=== PATIENT | male | born 1945 | race African-American/Black ===

== ENCOUNTER 2016-09-06 07:23 | Emergency (ER) | payer BC, MEDICARE ==
[~2016-09-06] VITALS: Ht 175.3 cm; Wt 64.0 kg
[~2016-09-06 07:23] MED LIST: ASPI-630 PO; FLUT1DIS3 IH; LISI-338 PO; MULT-658 PO; OMEP20CA9 PO; PRED-220 PO; VENTOLIN HFA18 GM INH
[2016-09-06 07:25] VITALS: BP 131/96
[2016-09-06] MEDS ORDERED: predniSONE 10 MG TABLET PO ONE (07:45)
[2016-09-06 08:00] LABS: CALCIUM 9.5 mg/dL (8.5-10.1); CREATININE 1.9 mg/dL (0.7-1.3); GFR 42.5; POTASSIUM 3.9 mmol/L (3.5-5.1)
[2016-09-06 08:03] LABS: URIC ACID 8.4 mg/dL (3.5-7.2)
--- NOTE | 2016-09-06 08:05 | ED.ADGEN ---
Past Medical History Past Medical History: Asthma, Hypertension Past Surgical History: Appendectomy Additional Past Surgical Histo: DECOMPRESSION HIP SURGERY Alcohol Use: Heavy Drug Use: None Adult General Chief Complaint Chief Complaint: TOE PROBLEM HPI HPI Patient is a 71 year old F[place]ian male presents with left great toe pain since yesterday. No injury. Patient reports left knee pain one week ago. Denies history of gout. No other acute symptoms or complaints. Review of Systems Review of Systems Review symptoms as prescribed. Current Medications Current Medications Current Medications Medications (Trade) Dose Ordered Sig/Rachel Start Time Stop Time Status Last Admin Dose Admin Prednisone (Prednisone) 50 mg 1X ONCE 09/06/16 07:45 09/06/16 07:46 DC 09/06/16 07:48 50 MG Allergies Allergies Allergies Coded Allergies Type Severity Reaction Last Updated Verified No Known Drug Allergies 04/05/13 No Physical Exam Physical Exam Constitutional: Well developed, well nourished, no acute distress, non-toxic appearance. Extremities: Great toe, mild erythema swelling with tenderness disproportionate to to mom of swelling and redness. No gross deformity. Current Patient Data Vital Signs Vital Signs Date Time Temp Pulse Resp B/P (MAP) Pulse Ox O2 Delivery O2 Flow Rate FiO2 09/06/16 07:25 98.7 103 15 99 Room Air 98.7 Lab Values Laboratory Tests Test 09/06/16 07:49 Sodium Level 141 mmol/L (136-145) Potassium Level 3.9 mmol/L (3.5-5.1) Chloride Level 103 mmol/L (98-107) Carbon Dioxide Level 31 mmol/L (21-32) Anion Gap 7 (6-14) Blood Urea Nitrogen 29 mg/dL (8-26) H Creatinine 1.9 mg/dL (0.7-1.3) H Estimated GFR (Cockcroft-Gault) 42.5 Glucose Level 125 mg/dL (70-99) H Uric Acid Pending Calcium Level 9.5 mg/dL (8.5-10.1) Laboratory Tests 09/06/16 07:49 EKG EKG [] Radiology/Procedures Radiology/Procedures [] Course & Med Decision Making Course & Med Decision Making Pertinent Labs and Imaging studies reviewed. (See chart for details) [Exam consistent with gouty arthritis of great toe] Dragon Disclaimer Dragon Disclaimer This electronic medical record was generated, in whole or in part, using a voice recognition dictation system. ISABELL ROBB DO Sep 06, 2016 08:05
== END 2016-09-06 08:15 | disposition home or self-care (01) ==
LOC: ER 07:23
DX: M10.9 Gout, unspecified (principal); I10 Essential (primary) hypertension; J45.909 Unspecified asthma, uncomplicated; Z90.49 Acquired absence of other specified parts of digestive tract
CPT/HCPCS: 36415; 80048; 84550; 99284; J7512

== ENCOUNTER 2017-04-01 13:39 | Emergency (ER) | payer BC ==
[2017-04-01] MEDS ORDERED: ALBUTEROL SULFATE 2.5 MG/3 ML NEBU. (14:28)
[2017-04-01] MEDS: IPRATRPIUM/ALBUTEROL 0.5/2.5MG 3 ML NEBU. NEB ×2 (14:29→14:33)
[2017-04-01] MEDS ORDERED: 0.9 % SODIUM CHLORIDE 10 ML DISP.SYRIN. IV (14:30)
[2017-04-01] MEDS: ALBUTEROL SULFATE 2.5 MG/3 ML NEBU. NEB (14:33)
[2017-04-01] MEDS: IV NORMAL SALINE 1000ML BAG 1,000 ML IV (15:20)
[2017-04-01] MEDS: methylPREDNISolone SOD SUCC PF 125 MG/2 ML VIAL. IV (15:20)
[2017-04-01] MEDS: ASPIRIN CHEWABLE 81 MG TABLET. PO (15:21)
[2017-04-01 15:30] LABS: ADD MAN DIFF? NO
[2017-04-01 15:33] LABS: BASO # 0.1 x10^3/uL (0.0-0.2); BASO % 1 % (0-3); EOS # 0.3 x10^3/uL (0.0-0.7); EOS % 3 % (0-3); HEMATOCRIT 45.2 % (39.0-53.0); HEMOGLOBIN 15.2 g/dL (13.0-17.5); LYMPH # 1.9 x10^3/uL (1.0-4.8); LYMPH % 22 % (24-48); MEAN CORPUSCULAR HEMOGLOBIN 36 pg (25-35); MEAN CORPUSCULAR HGB CONC 34 g/dL (31-37); MEAN CORPUSCULAR VOLUME 107 fL (79-100); MONO % 12 % (0-9); NEUT # 5.3 x10^3uL (1.8-7.7); NEUT % 62 % (31-73); PLATELET COUNT 225 x10^3/uL (140-400); RED BLOOD COUNT 4.24 x10^6/uL (4.30-5.70); RED CELL DISTRIBUTION WIDTH 13.6 % (11.5-14.5); WHITE BLOOD COUNT 8.4 x10^3/uL (4.0-11.0)
[2017-04-01 15:49] LABS: ANION GAP 15 (6-14); BLOOD UREA NITROGEN 37 mg/dL (8-26); CALCIUM 9.1 mg/dL (8.5-10.1); CARBON DIOXIDE 24 mmol/L (21-32); CHLORIDE 105 mmol/L (98-107); CREATININE 1.9 mg/dL (0.7-1.3); GFR 42.4; GLUCOSE 99 mg/dL (70-99); POTASSIUM 4.1 mmol/L (3.5-5.1); SODIUM 144 mmol/L (136-145)
[2017-04-01 15:55] LABS: ALBUMIN 3.7 g/dL (3.4-5.0); ALK PHOS 89 U/L (46-116); ALT (SGPT) 24 U/L (16-63); AST (SGOT) 29 U/L (15-37); DIRECT BILIRUBIN 0.1 mg/dL (0.0-0.2); TOTAL BILIRUBIN 0.1 mg/dL (0.2-1.0); TOTAL PROTEIN 6.9 g/dL (6.4-8.2)
[2017-04-01 16:02] LABS: TROPONINI < 0.017 ng/mL (0.000-0.055)
[2017-04-01 16:03] LABS: NT-PRO BNP 128 pg/mL (0-124)
[2017-04-01 16:03] LABS: CREATINE KINASE 33 U/L (39-308)
[2017-04-01 16:05] LABS: INFLUENZA A PATIENT NEGATIVE (NEGATIVE); INFLUENZA B PATIENT NEGATIVE (NEGATIVE); OBC FLU VALID
[2017-04-01 16:11] LABS: CKMB INDEX 1.5 % (0-4); CKMB MASS < 0.5 ng/mL (0.0-3.6)
== END 2017-04-01 17:13 | disposition home or self-care (01) ==
LOC: ER 13:39
DX: J44.1 Chronic obstructive pulmonary disease with (acute) exacerbation (principal); I13.10 Hypertensive heart and chronic kidney disease without heart failure, with stage 1 through stage 4 chronic kidney disease, or unspecified chronic kidney disease; N18.9 Chronic kidney disease, unspecified; F17.210 Nicotine dependence, cigarettes, uncomplicated; Z90.49 Acquired absence of other specified parts of digestive tract
CPT/HCPCS: 36415; 71046; 80048; 80076; 82553; 83880; 84484; 85025; 87804; 87804-59; 93005; 94640; 96361; 96374; 99285-25; J2930; J7030; J7613; J7620

== ENCOUNTER 2019-10-24 21:32 | Inpatient (IN) | payer BC ==
[~2019-10-24] VITALS: Ht 175.3 cm; Wt 72.0 kg
[~2019-10-24 21:32] MED LIST changes: +ALBU2.5V8 INH; +AMOX1TAB11 PO; +CIPR500T94 PO; +OMEP20CA16 PO; -OMEP20CA9 PO; +PRED50TA PO; +TIOT18CA IH; +TRIA1TAB3 PO; +combivent; +symbicort
--- NOTE | 2019-10-24 22:17 | PHYS DOC ---
Past Medical History Past Medical History: Asthma, COPD, Hypertension, Renal Disease Past Surgical History: Appendectomy Additional Past Surgical Histo: Hip surgery Smoking Status: Light Tobacco Smoker Alcohol Use: Occasionally Drug Use: None General Adult EDM: Chief Complaint: SHORTNESS OF BREATH HPI: HPI: Patient is a 74 year old male who presents with chief complaint of shortness of breath. Patient states that today he felt like his shortness of breath changed in that he became worse today. He reports no change in cough and reports a thin clear sputum production occasionally. He also denied any fever or chills reports that his exercise tolerance is for him. Patient also denied any chest pain, neck pain or back pain. In addition he denied melena, hematochezia, hematemesis, nausea, vomiting, diarrhea, anosmia, sore throat, or any real change in his cough. Patient denies any recent contacts that are exposed to COVID or any familial illnesses. Review of Systems: Review of Systems: Constitutional: Denies fever or chills. [] Eyes: Denies change in visual acuity. [] HENT: Denies nasal congestion or sore throat. [] Respiratory: see HPI [] Cardiovascular: Denies chest pain or edema. [] GI: Denies abdominal pain, nausea, vomiting, bloody stools or diarrhea. [] : Denies dysuria. [] Musculoskeletal: Denies back pain or joint pain. [] Integument: Denies rash. [] Neurologic: Denies headache, focal weakness or sensory changes. [] Endocrine: Denies polyuria or polydipsia. [] Lymphatic: Denies swollen glands. [] Psychiatric: Denies depression or anxiety. [] Heart Score: Risk Factors: Risk Factors: DM, Current or recent (<one month) smoker, HTN, HLP, family history of CAD, obesity. Risk Scores: Score 0 - 3: 2.5% MACE over next 6 weeks - Discharge Home Score 4 - 6: 20.3% MACE over next 6 weeks - Admit for Clinical Observation Score 7 - 10: 72.7% MACE over next 6 weeks - Early Invasive Strategies Allergies: Allergies: Allergies Coded Allergies Type Severity Reaction Last Updated Verified No Known Drug Allergies 04/05/13 No Physical Exam: PE: Constitutional: Well developed, well nourished, no acute distress, non-toxic appearance. [] HENT: Normocephalic, atraumatic, bilateral external ears normal, oropharynx moist, no oral exudates, nose normal. [] Eyes: PERRLA, EOMI, conjunctiva normal, no discharge. [] Neck: Normal range of motion, no tenderness, supple, no stridor. [] Cardiovascular:Heart rate regular rhythm, no murmur [] Lungs & Thorax: Respiratory rate of 20 with some mild accessory muscle use. Diffuse rhonchi bilaterally with basilar crackles, no chest wall deformity. Abdomen: Bowel sounds normal, soft, no tenderness, no masses, no pulsatile masses. [] Skin: Warm, dry, no erythema, no rash. [] Back: No tenderness, no CVA tenderness. [] Extremities: No tenderness, no cyanosis, mild clubbing, ROM intact, trace edema bilaterally. [] Neurologic: Alert and oriented X 3, normal motor function, normal sensory function, no focal deficits noted. [] Psychologic: Affect normal, judgement normal, mood normal. [] EKG: EKG: Heart rate 69 bpm, normal sinus rhythm, normal intervals, normal axis, normal ECG [] Radiology/Procedures: Radiology/Procedures: No acute infiltrative process noted on chest x-ray two-view [] Course & Med Decision Making: Course & Med Decision Making Pertinent Labs and Imaging studies reviewed. (See chart for details) [id number]-the patient was seen and reevaluated. The patient has improved with treatments rendered here in the emergency department. Patient does have a bord ryann elevated troponin and I am awaiting a repeat prior to his discharge. If it is negative he will be safe for discharge. Patient improved with treatment rendered here in the emergency department. No evidence for next medical or surgical problem is identified. Patient does not need to be admitted at this time. I discussed reasons to return, treatment plan and need for follow-up. [] Dragon Disclaimer: Dragon Disclaimer: This electronic medical record was generated, in whole or in part, using a voice recognition dictation system. Date and Time of Assessment Date: Oct 24, 2019 Time: 22:11 Vital Signs Temperature Source: Oral Respirations Respiratory Effort: Accessory muscles Respiratory Pattern: Tachypnea Cardiovascular Pulse Rhythm: Regular Heart: Nml rate, reg. rhythm, Nml S1, S2, no murmurs Lung Sounds Breath Sounds: Rhonchi Capillary Refil Capillary Refill: Rt Hand < 3 seconds Peripheral Pulse Pulse Location: Radial Pulse Strength: Normal (2+) Pulse Assessment Method: Palpation Integumentary Skin: Warm, Dry, No Rashes Skin Moisture: Dry Skin Turgor: Normal Skin Color: warm, dry Fingernail Color: WNL Departure Departure Impression: Primary Impression: COPD with acute exacerbation Disposition: HOME, SELF-CARE Condition: IMPROVED Referrals: DARREN CHEN MD (PCP) Patient Instructions: Chronic Obstructive Pulmonary Disease Exacerbation Scripts Doxycycline Hyclate (DOXYCYCLINE HYCLATE) 100 Mg Tablet 1 TAB PO BID, #14 TAB Prov: LIS MORROW MD 10/24/19 Prednisone (PREDNISONE ) 10 Mg Tablet 10 MG PO DAILY, #30 TAB 0 Refills 4 pills daily for 3 days, then 3 pills daily for 3 days, then 2 pills daily for 3 days, then 1 pill daily for 3 days then stop Prov: LIS MORROW MD 10/24/19 Justicifation of Admission Dx: Justifications for Admission: Justification of Admission Dx: N/A LIS MORROW MD Oct 24, 2019 22:17
[2019-10-24 22:18] LABS: BASO % 1 % (0-3); EOS # 0.1 x10^3/uL (0.0-0.7); EOS % 2 % (0-3); HEMATOCRIT 42.7 % (39.0-53.0); HEMOGLOBIN 14.7 g/dL (13.0-17.5); LYMPH # 1.8 x10^3/uL (1.0-4.8); LYMPH % 29 % (24-48); MEAN CORPUSCULAR HEMOGLOBIN 37 pg (25-35); MEAN CORPUSCULAR HGB CONC 35 g/dL (31-37); MEAN CORPUSCULAR VOLUME 108 fL (79-100); MONO # 0.6 x10^3/uL (0.0-1.1); MONO % 9 % (0-9); NEUT # 3.7 x10^3/uL (1.8-7.7); NEUT % 59 % (31-73); PLATELET COUNT 227 x10^3/uL (140-400); RED BLOOD COUNT 3.95 x10^6/uL (4.30-5.70); RED CELL DISTRIBUTION WIDTH 15.1 % (11.5-14.5); WHITE BLOOD COUNT 6.2 x10^3/uL (4.0-11.0)
[2019-10-24 22:26] LABS: CALCIUM 9.1 mg/dL (8.5-10.1); CREATININE 1.6 mg/dL (0.7-1.3); GFR 51.4; POTASSIUM 3.8 mmol/L (3.5-5.1); PROTHROMBIN TIME PATIENT 11.2 SEC (11.7-14.0)
[2019-10-24] MEDS ORDERED: methylPREDNISolone SOD SUCC PF 125 MG/2 ML VIAL. IV ONE (22:30)
[2019-10-24] MEDS ORDERED: ALBUTEROL SULFATE 2.5 MG/3 ML NEBU. CONT NEB ONE (22:30)
[2019-10-24] MEDS ORDERED: IPRATROPIUM BROMIDE 0.5 MG/2.5 ML NEBU. NEB ONE (22:30)
[2019-10-24 22:32] LABS: ALBUMIN 3.2 g/dL (3.4-5.0); ALBUMIN/GLOBULIN RATIO 0.9 (1.0-1.7); TOTAL BILIRUBIN 0.2 mg/dL (0.2-1.0); TOTAL PROTEIN 6.9 g/dL (6.4-8.2)
--- NOTE | 2019-10-24 22:48 | RAD ---
Exam: Chest one view INDICATION: Short of air TECHNIQUE: Dental view of the chest Comparisons: 04/11/2017 FINDINGS: The cardiomediastinal silhouette and pulmonary vessels are within normal limits. The lung and pleural spaces are clear. IMPRESSION: No acute cardiopulmonary process. Electronically signed by: Elia Coleman MD (10/24/2019 10:45 PM) [id number]
[2019-10-24] MEDS ORDERED: PRED-220 PO (23:50)
[2019-10-24] MEDS ORDERED: DOXY100T PO (23:50)
[2019-10-25] MEDS ORDERED: ONDANSETRON PF 4 MG/2 ML VIAL. IV PRN (02:45)
[2019-10-25] MEDS ORDERED: cefTRIAXone IV Push 1 GM VIAL. IVP ONE (03:00)
[2019-10-25] MEDS ORDERED: IV NORMAL SALINE 1000ML BAG 1,000 ML IV ONE (03:00)
[2019-10-25] MEDS ORDERED: AZITHRMYCN 500MG IVPB FOR OMNI 250 ML IV ONE (03:00)
[2019-10-25] MEDS ORDERED: ALBUTEROL SULFATE 2.5 MG/3 ML NEBU. NEB PRN (04:15)
[2019-10-25] MEDS ORDERED: ALBUTEROL SULFATE 8GM INHALER. INH PRN (05:00)
[2019-10-25 07:00] VITALS: BP 173/96
[2019-10-25 11:00] VITALS: BP 141/78
--- NOTE | 2019-10-25 11:28 | SSS ---
ADMIT DATE: 10/25/2019 CHIEF COMPLAINT: Shortness of breath. HISTORY OF PRESENT ILLNESS: The patient is a pleasant 74-year-old male who smokes and drinks. He states he drinks about a pint of whiskey a day. Basically, he presented with shortness of breath. He does have known COPD as well. He has had a baseline cough with some clear sputum. Chest x-ray in the ER did not show any acute disease. However, he did have a high lactic acid. He has been admitted now for observation. We are going to checking for COVID-19, currently being examined on the medical floor where he is requesting discharge. PAST MEDICAL HISTORY: Asthma, COPD, hypertension, renal disease, appendectomy, hip surgery, tobacco abuse, alcohol abuse. ALLERGIES: None. FAMILY HISTORY: Diabetes. SOCIAL HISTORY: He drinks a pint a day. He smokes. No drugs. He is retired. MEDICATIONS: Reviewed, please refer to the MRAD. REVIEW OF SYSTEMS: GENERAL: No history of weight change, weakness or fevers. SKIN: No bruising, hair changes or rashes. EYES: No blurred, double or loss of vision. NOSE AND THROAT: No history of nosebleeds, hoarseness or sore throat. HEART: No history of palpitations, chest pain or shortness of breath on exertion. LUNGS: He complains of shortness of breath. GASTROINTESTINAL: Denies changes in appetite, nausea, vomiting, diarrhea or constipation. GENITOURINARY: No history of frequency, urgency, hesitancy or nocturia. NEUROLOGIC: Denies history of numbness, tingling, tremor or weakness. PSYCHIATRIC: No history of panic, anxiety or depression. ENDOCRINE: No history of heat or cold intolerance, polyuria or polydipsia. EXTREMITIES: Denies muscle weakness, joint pain, pain on walking or stiffness. PHYSICAL EXAMINATION: VITALS: Within normal limits and are stable. GENERAL: No apparent distress. Alert and oriented. HEENT: Normal cephalic atraumatic, external auditory canals are patent EYES: Extraocular muscles are intact, pupils are equally round and reactive to light and accommodation MUSCULOSKELETAL: Well developed, well nourished, good range of motion ENDOCRINE: No thyromegaly was palpated LYMPHATICS: No cervical chain or axillary nodes were noted HEMATOPOIETIC: No bruising NECK: Supple, no JVD, no thyromegaly was noted. LUNGS: He has decreased breath sounds. HEART: RRR, S1, S2 present. Peripheral pulses intact, no obvious murmurs were noted. ABDOMEN: Soft, nontender. Positive bowel sounds no organomegaly, normal bowel sounds. EXTREMITIES: Without any cyanosis, clubbing, or edema. Pedal pulses intact, Homans sign is negative. NEUROLOGIC: He is shaking, but he states that is his baseline. PSYCHIATRIC: Normal affect, normal mood. Stable. SKIN: No ulcerations or rashes, good skin turgor, no jaundice. VASCULAR: Good capillary refill, neurovascular bundle appears to be intact. ASSESSMENT AND PLAN: Respiratory failure, chronic obstructive pulmonary disease, possible COVID-19. The patient has been admitted. We are going to checking for COVID-19. If that is negative we are going to discharge him. For now, we are going to do alcohol withdrawal protocol, IV antibiotics, metered dose inhalers, O2, home meds, DVT prophylaxis. Full code. BARBARA RESENDEZ DO DR: ELIAN/aurora JOB#: [id number] / [id number]
[2019-10-25] MEDS ORDERED: AZITHRMYCN 500MG IVPB FOR OMNI 250 ML IV SCH (11:30)
--- NOTE | 2019-10-25 11:57 | CONS ---
DATE OF CONSULTATION: PULMONARY CONSULTATION ATTENDING PHYSICIAN: Keith Tang DO. REASON FOR CONSULTATION: Dyspnea. HISTORY OF PRESENT ILLNESS: The patient is a 74-year-old male who has smoked for 55 years before quitting a year ago. He was brought into the hospital with some mild shortness of breath with exertion for the last few weeks. He has a mild cough, clear sputum production, no fever, no chills. His chest x-ray was reviewed and there was no definite consolidation. The patient was admitted to the hospital for further evaluation and to rule out COVID. Since in the hospital, he does not have a fever, his COVID test is pending. No headaches, no nausea or vomiting, no diarrhea, no dysuria, no focal weakness. PAST MEDICAL HISTORY: History of COPD, history of hypertension, appendectomy, hip surgery, alcohol abuse and tobacco abuse. PAST SURGICAL HISTORY: As above. ALLERGIES: None. FAMILY HISTORY: Diabetes. SOCIAL HISTORY: Quit tobacco a year ago, before that smoked for 55 years. MEDICATIONS: Reviewed as listed in the MRAD. REVIEW OF SYSTEMS: Twelve-point system obtained. Pertinent positives discussed in my history of present illness, otherwise noncontributory. All systems that were negative were reviewed as well. PHYSICAL EXAMINATION: VITAL SIGNS: Reviewed. Pulse ox 96% on room air. NECK: Supple. LUNGS: Clear. CARDIOVASCULAR: With a regular rate. ABDOMEN: Soft. EXTREMITIES: With no pitting edema. LABORATORY DATA: Reviewed. White cell count 6.2, hemoglobin 14.7. BUN 14, creatinine 1.6. Lactic acid 4.0. IMPRESSION: 1. Dyspnea secondary to mild exacerbation of chronic obstructive pulmonary disease. 2. Acute bronchitis, no definite consolidation. 3. Lactic acidosis, likely from increased work of breathing, clinically better, hopefully it should resolve by now on followup testing. 4. Low suspicion for COVID. RECOMMENDATIONS: 1. We will continue present antibiotic. 2. If COVID is negative, he could be switched to p.o. and could be discharged home. 3. Oral prednisone with taper. 4. PFTs as an outpatient. 5. The patient no longer smokes cigarettes. Discussed with RN. BRUNA DUTTON MD DR: WESTON/aurora JOB#: [id number] / [id number]
--- NOTE | 2019-10-25 14:35 | EKG ---
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
[2019-10-25 14:58] VITALS: BP 165/79
[2019-10-25] MEDS: methylPREDNISolone SOD SUCC PF 40 MG/ML VIAL. IV SCH ×2 (15:07→21:28)
[2019-10-25] MEDS: MULTIVITAMIN with MINERAL TABLET. PO SCH (15:07)
--- NOTE | 2019-10-25 17:13 | NUR ---
SW following. Spoke with RN and reviewed chart. Spoke with pt who stated he lives with his . Pt stated no concerns about returning home. Pt on room air. Pt on IV Rocephin. Halle SS to follow as needed but there do not appear to be SW needs at this time.
--- NOTE | 2019-10-25 18:53 | NUR ---
Asked med students with Dr Tang about the last lactic level being 4. At this time there are no plans to redraw and thinks this is not a concern. Pt is afebrile and VSS.
[2019-10-25 19:00] VITALS: BP 133/82
[2019-10-25 23:00] VITALS: BP 152/80
[2019-10-26 03:15] VITALS: BP 155/81
[2019-10-26] MEDS: methylPREDNISolone SOD SUCC PF 40 MG/ML VIAL. IV SCH (05:45)
[2019-10-26 07:15] VITALS: BP 149/80
[2019-10-26] MEDS ORDERED: AZITHROMYCIN 500 MG in IV NORMAL SALINE 250ML 250 ML IV SCH (08:00)
[2019-10-26] MEDS ORDERED: cefTRIAXone IV Push 1 GM VIAL. IVP SCH (08:00)
[2019-10-26] MEDS: MULTIVITAMIN with MINERAL TABLET. PO SCH (08:24)
--- NOTE | 2019-10-26 11:00 | PDOC ---
[employer] PROGRESS NOTE Date of Service DOS: DATE: 10/26/19 TIME: 10:53 Chief Complaint Chief Complaint Respiratory failure Chronic obstructive pulmonary disease Possible COVID-19 Alcohol abuse Hypertension History of Present Illness History of Present Illness 10/26/2019 Patient seen and examined Shaking has improved Afebrile COVID 19 results pending Discussed with RN Chart reviewed Vitals/I&O Vitals/I&O: Vital Signs Date Time Temp Pulse Resp B/P (MAP) Pulse Ox O2 Delivery O2 Flow Rate FiO2 10/26/19 07:15 96.5 82 18 149/80 (103) 98 Room Air 96.5 I & O 10/25/19 10/25/19 10/26/19 15:00 23:00 07:00 Intake Total 550 ml 350 ml 200 ml Balance 550 ml 350 ml 200 ml Physical Exam General: Alert, Oriented X3, Cooperative, No acute distress Heart: Regular rate Lungs: Clear Abdomen: Soft, No tenderness Extremities: No clubbing, No cyanosis Skin: No rashes, No significant lesion Assessment and Plan Assessmemt and Plan Problems Medical Problems: (1) COPD with acute exacerbation Status: Acute ASSESSMENT Respiratory failure Chronic obstructive pulmonary disease Possible COVID-19 Alcohol abuse Hypertension PLAN Planning to discharge to home today COVID 19 pending Respiratory isolation Continue alcohol withdrawal protocol Change to oral antibiotics Albuterol MDI Continue steroids Home meds DVT prophylaxis Full code Appreciate subspecialty input Comment Review of Relevant I have reviewed the following items francisco (where applicable) has been applied. Medications: Current Medications Medications (Trade) Dose Ordered Sig/Rachel Route PRN Reason Start Time Stop Time Status Last Admin Dose Admin Methylprednisolone Sodium Succinate (SOLU-Medrol 40MG VIAL) 40 mg Q8HRS IV 10/25/19 12:00 10/26/19 05:45 Multivitamins (Thera M Plus) 1 tab DAILY PO 10/25/19 11:30 10/26/19 08:24 Ceftriaxone Sodium (Rocephin) 1 gm Q24H IVP 10/26/19 08:00 10/26/19 08:24 Azithromycin 500 mg/Sodium Chloride 250 ml @ 250 mls/hr Q24H IV 10/26/19 08:00 10/26/19 08:24 Justicifation of Admission Dx: Justifications for Admission: Justification of Admission Dx: N/A BARBARA RESENDEZ III DO Oct 26, 2019 11:00
--- NOTE | 2019-10-26 11:01 | PDOC ---
PULMONARY PROGRESS NOTES DATE: 10/26/19 TIME: 10:58 Subjective Pt. is up to chair today, no SOA, no CP, no cough Feeling good, wants to D/C home today no overnight concerns from nursing Vitals Vital Signs Date Time Temp Pulse Resp B/P (MAP) Pulse Ox O2 Delivery O2 Flow Rate FiO2 10/26/19 07:15 96.5 82 18 149/80 (103) 98 Room Air 96.5 ROS: No Nausea, No Chest Pain, No Abdominal Pain, No Increase Cough General: Alert, No acute distress, Mild Distress Lungs: Clear Cardiovascular: S1 Abdomen: Soft Extremities: No Edema Skin: Warm, Dry, No Rashes Labs Laboratory Tests Test 10/24/19 21:55 10/25/19 01:45 White Blood Count 6.2 x10^3/uL (4.0-11.0) Red Blood Count 3.95 x10^6/uL (4.30-5.70) Hemoglobin 14.7 g/dL (13.0-17.5) Hematocrit 42.7 % (39.0-53.0) Mean Corpuscular Volume 108 fL (79-100) Mean Corpuscular Hemoglobin 37 pg (25-35) Mean Corpuscular Hemoglobin Concent 35 g/dL (31-37) Red Cell Distribution Width 15.1 % (11.5-14.5) Platelet Count 227 x10^3/uL (140-400) Neutrophils (%) (Auto) 59 % (31-73) Lymphocytes (%) (Auto) 29 % (24-48) Monocytes (%) (Auto) 9 % (0-9) Eosinophils (%) (Auto) 2 % (0-3) Basophils (%) (Auto) 1 % (0-3) Neutrophils # (Auto) 3.7 x10^3/uL (1.8-7.7) Lymphocytes # (Auto) 1.8 x10^3/uL (1.0-4.8) Monocytes # (Auto) 0.6 x10^3/uL (0.0-1.1) Eosinophils # (Auto) 0.1 x10^3/uL (0.0-0.7) Basophils # (Auto) 0.0 x10^3/uL (0.0-0.2) Prothrombin Time 11.2 SEC (11.7-14.0) Prothromb Time International Ratio 0.9 (0.8-1.1) Activated Partial Thromboplast Time 25 SEC (24-38) Sodium Level 143 mmol/L (136-145) Potassium Level 3.8 mmol/L (3.5-5.1) Chloride Level 106 mmol/L (98-107) Carbon Dioxide Level 28 mmol/L (21-32) Anion Gap 9 (6-14) Blood Urea Nitrogen 14 mg/dL (8-26) Creatinine 1.6 mg/dL (0.7-1.3) Estimated GFR (Cockcroft-Gault) 51.4 BUN/Creatinine Ratio 9 (6-20) Glucose Level 94 mg/dL (70-99) Lactic Acid Level 3.1 mmol/L (0.4-2.0) 4.0 mmol/L (0.4-2.0) Calcium Level 9.1 mg/dL (8.5-10.1) Total Bilirubin 0.2 mg/dL (0.2-1.0) Aspartate Amino Transf (AST/SGOT) 25 U/L (15-37) Alanine Aminotransferase (ALT/SGPT) 22 U/L (16-63) Alkaline Phosphatase 70 U/L (46-116) Troponin I Quantitative 0.056 ng/mL (0.000-0.055) 0.047 ng/mL (0.000-0.055) Total Protein 6.9 g/dL (6.4-8.2) Albumin 3.2 g/dL (3.4-5.0) Albumin/Globulin Ratio 0.9 (1.0-1.7) Medications Active Scripts Medications Dose Route/Sig Max Daily Dose Days Date Category Dose Instructions Doxycycline Hyclate 100 Mg Tablet 1 Tab PO BID 10/24/19 Rx Prednisone (Prednisone) 10 Mg Tablet 10 Mg PO DAILY 10/24/19 Rx 4 pills daily for 3 days, then 3 pills daily for 3 days, then 2 pills daily for 3 days, then 1 pill daily for 3 days then stop Amox Tr-K Clv 875-125 Mg Tab (Amoxicillin/Potassium Clav) 1 Each Tablet 1 Tab PO BID 7 04/15/17 Rx [combivent] 04/10/17 Reported [symbicort] 04/10/17 Reported Spiriva (Tiotropium [place]) 18 Mcg Cap.w.dev 2 Inh IH DAILY 04/10/17 Reported Triamterene-Hctz 37.5-25 Mg Tb (Triamterene/Hydrochlorothiazid) 1 Each Tablet 1 Tab PO DAILY 04/10/17 Reported Proair Hfa Inhaler (Albuterol Sulfate) 8.5 Gm Hfa.aer.ad 2 Puff INH PRN Q6HRS PRN 7 04/01/17 Rx Advair 250-50 Diskus (Fluticasone/Salmeterol) 1 Each Disk.w.dev 1 Each IH BID 04/22/15 Rx Ventolin Hfa Inhaler (Albuterol Sulfate) 18 Gm Hfa.aer.ad 2 Puff INH Q4HRS 04/22/15 Rx Aspirin 81 Mg Tab.chew 81 Mg PO DAILY 04/05/13 Reported Centrum Silver Tablet (Multivits-Min/Fa/Lycopene/Lut) 1 Each Tablet 1 Each PO DAILY07 04/05/13 Reported Lisinopril 5 Mg Tablet 5 Mg PO DAILY07 04/05/13 Reported Comments CXR IMPRESSION: No acute cardiopulmonary process. Impression . IMPRESSION: 1. Dyspnea secondary to mild exacerbation of chronic obstructive pulmonary disease--resolved 2. Acute bronchitis, no definite consolidation-resolved 3. Lactic acidosis, likely from increased work of breathing, clinically better, hopefully it should resolve by now on followup testing.--ongoing 4. Low suspicion for COVID. Plan . RECOMMENDATIONS: Stable from pulmonary standpoint, on room air Continue present antibiotic. If COVID is negative, he could be switched to p.o. and could be discharged home. Oral prednisone with taper. PFTs as an outpatient. Discussed with ROMERO. BRUNA DUTTON MD Oct 26, 2019 11:01
--- NOTE | 2019-10-26 11:08 | PDOC ---
Infectious Disease Note Vital Sign Vital Signs Vital Signs Date Time Temp Pulse Resp B/P (MAP) Pulse Ox O2 Delivery O2 Flow Rate FiO2 10/26/19 07:15 96.5 82 18 149/80 (103) 98 Room Air 96.5 Labs Micro Microbiology 10/24/19 Blood Culture - Preliminary, Resulted NO GROWTH AFTER 1 DAY Objective Assessment pt seen, consult dictated Plan Plan of Care / LASHONDA WRIGHT MD Oct 26, 2019 11:08
[2019-10-26 11:42] VITALS: BP 152/76
[2019-10-26 12:36] LABS: ALBUMIN 2.8 g/dL (3.4-5.0); ALBUMIN/GLOBULIN RATIO 0.9 (1.0-1.7); CALCIUM 8.3 mg/dL (8.5-10.1); CREATININE 1.4 mg/dL (0.7-1.3); GFR 59.9; POTASSIUM 4.4 mmol/L (3.5-5.1); TOTAL BILIRUBIN 0.2 mg/dL (0.2-1.0); TOTAL PROTEIN 5.9 g/dL (6.4-8.2)
--- NOTE | 2019-10-26 14:40 | NUR ---
Pt discharged home with spouse. Discharge instructions reviewed and questions answered.
--- NOTE | 2019-10-26 18:37 | CONS ---
DATE OF CONSULTATION: 10/26/2019 REQUESTING PHYSICIAN: Dr. Cleary___. REASON FOR CONSULTATION: Lactic acidosis. HISTORY OF PRESENT ILLNESS: This is a 74-year-old gentleman who has history of COPD, who came in with 1-week history of sickness. The patient's COVID is pending. The patient has no infiltrate. The patient has no hypoxia as he is on room air right now. The patient had lactic acid up to 4, hence consultation. The patient is receiving azithromycin and Rocephin and prednisone. The patient is feeling really good that he thinks he can go home. PAST MEDICAL HISTORY: Positive for COPD. The patient has hypertension, has had appendicectomy in the past. SOCIAL HISTORY: Positive for alcohol abuse and smoking positive, but he quit a year ago. ALLERGIES: No known drug allergies. CURRENT MEDICATIONS: Reviewed. REVIEW OF SYSTEMS: As per HPI, all other systems reviewed are negative. PHYSICAL EXAMINATION: GENERAL: Alert, oriented gentleman, not in distress. VITAL SIGNS: Stable, afebrile. HEENT: NAD. NECK: Supple, no JVP, no lymphadenopathy. LUNGS: Clear. HEART: S1, S2 regular. ABDOMEN: Benign. EXTREMITIES: No edema or cyanosis. SKIN: Unremarkable. NEUROLOGIC: The patient is neurologically alert, awake and appropriate. No focal neurologic deficit. LABORATORY DATA: White count is normal. Platelets are normal. BUN and creatinine is 14 and 1.6. Lactic acid is 4. Blood culture is negative. Chest x-ray is unremarkable. IMPRESSION: 1. Lactic acidosis. He may have occult liver problem since he has alcohol history and clearing lactic acid because of the dehydration is worse or it could be lactic acid B that patient does not look septic and he is actually even asymptomatic right now. 2. Chronic obstructive pulmonary disease exacerbation. 3. COVID-19 pending. RECOMMENDATIONS: We will give a liter of fluid. Repeat lactic acid. Anyway he needs to have repeated creatinine. Supportive care and hopefully the patient can be discharged on p.o. Augmentin. Thank you very much, ____, for giving me the opportunity to participate in this patient's care. LASHONDA WRIGHT MD DR: TRACEE/aurora JOB#: [id number] / [id number]
== END 2019-10-26 14:40 | disposition home or self-care (01) | DRG 190 ==
LOC: ER 21:32 → 6 SOUTH 10-25 02:36
PROVIDERS: ADMIT Internal Medicine; ATTEND Internal Medicine
DX: J44.1 Chronic obstructive pulmonary disease with (acute) exacerbation (principal); J96.90 Respiratory failure, unspecified, unspecified whether with hypoxia or hypercapnia; E87.2 Acidosis; J44.0 Chronic obstructive pulmonary disease with (acute) lower respiratory infection; J20.9 Acute bronchitis, unspecified; E86.0 Dehydration; F10.10 Alcohol abuse, uncomplicated; F17.200 Nicotine dependence, unspecified, uncomplicated; I10 Essential (primary) hypertension; Z20.828 Contact with and (suspected) exposure to other viral communicable diseases; Z83.3 Family history of diabetes mellitus; Z90.49 Acquired absence of other specified parts of digestive tract
CPT/HCPCS: 36415; 71045; 80053; 83605; 84484; 85025; 85610; 85730; 87040; 93005; 94640; 94644; 96374; 99285; J0456; J0696; J2920; J2930; J7030; J7050; G0378; J7613; J7644; U0003-CS

== ENCOUNTER 2021-05-28 03:57 | Observation (INO) | payer BC ==
[~2021-05-28] VITALS: Ht 175.3 cm; Wt 59.5 kg
[~2021-05-28 03:57] MED LIST changes: +DOXY100T PO; -LISI-338 PO; +LISI5TAB15 PO
--- NOTE | 2021-05-28 04:14 | PHYS DOC ---
Past Medical History Past Medical History: Asthma, COPD, Hypertension, Renal Disease Past Surgical History: Appendectomy Additional Past Surgical Histo: Hip surgery Smoking Status: Former Smoker Alcohol Use: Heavy Drug Use: None General Adult HPI: HPI: Patient is a 76 year old female male with past medical history of COPD former smoker who recently restarted smoking presents with a chief complaint of shortness of breath. Patient states he has had shortness of breath for the last 3 days progressive becoming worse. Patient has a cough with and without sputum production. Patient denies any associated chest pain. Patient states he has had chills but denies any fevers. Patient is not on oxygen at home. Patient has been vaccinated against COVID-19. On arrival patient with oxygen saturations in the 80s on room air. Review of Systems: Review of Systems: Constitutional: Denies fever positive chills. [] Eyes: Denies change in visual acuity. [] HENT: Denies nasal congestion or sore throat. [] Respiratory: Positive cough positive shortness of breath Cardiovascular: Denies chest pain or edema. [] GI: Denies abdominal pain, nausea, vomiting, bloody stools or diarrhea. [] : Denies dysuria. [] Musculoskeletal: Denies back pain or joint pain. [] Integument: Denies rash. [] Neurologic: Denies headache, focal weakness or sensory changes. [] Endocrine: Denies polyuria or polydipsia. [] Lymphatic: Denies swollen glands. [] Psychiatric: Denies depression or anxiety. [] Heart Score: C/O Chest Pain: N/A Risk Factors: Risk Factors: DM, Current or recent (<one month) smoker, HTN, HLP, family history of CAD, obesity. Risk Scores: Score 0 - 3: 2.5% MACE over next 6 weeks - Discharge Home Score 4 - 6: 20.3% MACE over next 6 weeks - Admit for Clinical Observation Score 7 - 10: 72.7% MACE over next 6 weeks - Early Invasive Strategies Allergies: Allergies: Allergies Coded Allergies Type Severity Reaction Last Updated Verified No Known Drug Allergies 04/05/13 No Physical Exam: PE: Constitutional: Well developed, well nourished, no acute distress, non-toxic appearance. [] HENT: Normocephalic, atraumatic, bilateral external ears normal, oropharynx moist, no oral exudates, nose normal. [] Eyes: PERRLA, EOMI, conjunctiva normal, no discharge. [] Neck: Normal range of motion, no tenderness, supple, no stridor. [] Cardiovascular:Heart rate regular rhythm, no murmur [] Lungs & Thorax: Bilateral breath sounds clear to auscultation [] Abdomen: Bowel sounds normal, soft, no tenderness, no masses, no pulsatile masses. [] Skin: Warm, dry, no erythema, no rash. [] Back: No tenderness, no CVA tenderness. [] Extremities: No tenderness, no cyanosis, no clubbing, ROM intact, no edema. [] Neurologic: Alert and oriented X 3, normal motor function, normal sensory function, no focal deficits noted. [] Psychologic: Affect normal, judgement normal, mood normal. [] EKG: EKG: [] Performed at 0415 Rate 90 Normal sinus rhythm No ST elevation No ST depression No acute CO Radiology/Procedures: Radiology/Procedures: [] Course & Med Decision Making: Course & Med Decision Making Pertinent Labs and Imaging studies reviewed. (See chart for details) [] Patient was evaluated for chief complaint. Work-up consisted of laboratory analysis and radiologic imaging. Results reviewed and discussed with patient. Patient noted to have elevated creatinine which is close to his baseline. Chest x-ray radiologist noted abnormality recommended CT imaging. CT imaging ordered but per radiologist request IV fluids CT imaging in the afternoon due to cr eatinine. Treatment in the ER included Solu-Medrol and DuoNeb. Patient still with Rocephin and Zithromax. Patient admitted to the hospitalist for further evaluation and treatment Jhonny Disclaimer: Jhonny Disclaimer: This electronic medical record was generated, in whole or in part, using a voice recognition dictation system. Departure Departure Impression: Primary Impression: COPD with acute exacerbation Disposition: ADMITTED INPATIENT Condition: STABLE Referrals: DARREN CHEN MD (PCP) EVON CAUPTO DO May 28, 2021 04:14
[2021-05-28 04:31] LABS: BASO # 0.1 x10^3/uL (0.0-0.2); BASO % 1 % (0-3); EOS % 1 % (0-3); HEMATOCRIT 42.8 % (39.0-53.0); HEMOGLOBIN 14.2 g/dL (13.0-17.5); LYMPH % 13 % (24-48); MEAN CORPUSCULAR HEMOGLOBIN 36 pg (25-35); MEAN CORPUSCULAR HGB CONC 33 g/dL (31-37); MEAN CORPUSCULAR VOLUME 109 fL (79-100); MONO % 14 % (0-9); NEUT # 5.4 x10^3/uL (1.8-7.7); NEUT % 72 % (31-73); PLATELET COUNT 150 x10^3/uL (140-400); RED BLOOD COUNT 3.95 x10^6/uL (4.30-5.70); RED CELL DISTRIBUTION WIDTH 15.3 % (11.5-14.5); WHITE BLOOD COUNT 7.6 x10^3/uL (4.0-11.0)
[2021-05-28] MEDS ORDERED: methylPREDNISolone SOD SUCC PF 125 MG/2 ML VIAL. IV ONE (04:45)
--- NOTE | 2021-05-28 04:48 | RAD ---
EXAMINATION: Chest radiograph. VIEWS: Single view COMPARISON: 08/24/2020 INDICATION:76 years, Male, shortness of breath. FINDINGS: Normal cardiomediastinal silhouette. Ill-defined focal opacity in the left midlung. No pleural effusi on or pneumothorax. No acute osseous process. IMPRESSION: Ill-defined focal opacity in the left midlung, new since prior exam. Findings could be focal scar savanna oscar pulmonary nodule/mass. Recommend further evaluation with CT chest. Electronically signed by: Willie Echavarria MD (05/28/2021 4:45 AM) [facility]
[2021-05-28 04:49] LABS: ALBUMIN 3.8 g/dL (3.4-5.0); CALCIUM 9.4 mg/dL (8.5-10.1); CREATININE 2.3 mg/dL (0.7-1.3); GFR 33.6; POTASSIUM 4.2 mmol/L (3.5-5.1); TOTAL BILIRUBIN 0.5 mg/dL (0.2-1.0); TOTAL PROTEIN 7.5 g/dL (6.4-8.2)
[2021-05-28 04:59] LABS: INFLUENZA A PATIENT NEGATIVE (NEGATIVE); INFLUENZA B PATIENT NEGATIVE (NEGATIVE)
--- NOTE | 2021-05-28 05:20 | EKG ---
[facility] [address] [place] [address] Test Date: 2021-05-28 Test Time: 04:15:36 Pat Name: DALY BABIN Department: Room: 208 1 Gender: M Nail Cutter: : 1945 Requested By: EVON CAPUTO Order Number: [id number] Reading MD: Puma De La O Measurements Intervals [place] Rate: 90 P: 54 FL: 108 QRS: 70 QRSD: 82 T: 76 QT: 370 QTc: 457 Interpretive Statements SINUS RHYTHM LEFT ATRIAL ABNORMALITY Electronically Signed On 05-29-2021 8:30:14 CORRECTIONAL OFFICER by Puma De La O
[2021-05-28] MEDS ORDERED: ALBUTEROL SULFATE 8GM INHALER. INH PRN (06:00)
[2021-05-28] MEDS ORDERED: IV NORMAL SALINE 1000ML BAG 1,000 ML IV ONE (06:00)
[2021-05-28] MEDS ORDERED: ALBUTEROL SULFATE 2.5 MG/3 ML NEBU. NEB PRN (06:00)
[2021-05-28] MEDS ORDERED: cefTRIAXone IV Push 1 GM VIAL. IVP ONE (06:00)
[2021-05-28 06:11] LABS: BASE EXCESS COOX 2 mmol/L (-3-3); HCO3 COOX 27 mmol/L (21-28); METHEMOGLOBIN 0.4 % (0.0-1.9); OXYHEMOGLOBIN 89.1 %; PCO2 COOX 42 mmHg (35-46); PO2 COOX 97 mmHg (65-108); SAT O2 COOX 96 % (92-99)
[2021-05-28] MEDS ORDERED: AZITHROMYCIN 500 MG in IV NORMAL SALINE 250ML 250 ML IV ONE (06:30)
[2021-05-28 06:31] VITALS: BP 167/99
[2021-05-28 07:30] VITALS: BP 132/76
[2021-05-28] MEDS ORDERED: IPRATRPIUM/ALBUTEROL 0.5/2.5MG 3 ML NEBU. NEB SCH (08:00)
[2021-05-28] MEDS ORDERED: LISINOPRIL 5 MG TABLET. PO SCH (08:00)
[2021-05-28] MEDS ORDERED: IOHEXOL 300 MG/ML 100ML VIAL. IV ONE (08:15)
[2021-05-28] MEDS ORDERED: BUDE10.2 IH (08:23)
[2021-05-28] MEDS ORDERED: IPRA3AMP29 NEB (08:23)
[2021-05-28] MEDS ORDERED: HYDR-2869 PO (08:23)
[2021-05-28] MEDS ORDERED: CONTRAST GIVEN. MC PRN (08:30)
[2021-05-28] MEDS: MULTIVITAMIN with MINERAL TABLET. PO SCH (08:56)
[2021-05-28] MEDS: ASPIRIN CHEWABLE 81 MG TABLET. PO SCH (08:56)
[2021-05-28] MEDS: predniSONE 20 MG TABLET PO SCH (08:56)
[2021-05-28] MEDS: DOXYCYCLINE HYCLATE 100 MG TABLET PO SCH ×2 (08:56→20:11)
[2021-05-28] MEDS ORDERED: NON FORMULARY ITEM (Tiotropium Bromide (Spiriva) 2 INH) IH SCH (09:00)
[2021-05-28] MEDS ORDERED: NON FORMULARY ITEM (Fluticasone/Salmeterol (Advair 250-50 Diskus) 1 EACH) IH SCH (09:00)
--- NOTE | 2021-05-28 09:08 | RAD ---
EXAM: CT CHEST WITH CONTRAST HISTORY: Abnormal chest x-ray. Nodular opacity in the left midlung. COPD. COMPARISON: Chest radiograph 05/28/2021. CT chest 11/29/2015 TECHNIQUE: Helical CT of the chest performed after administration of 60 mL Omnipaque 300 intravenous contrast. Coronal and sagittal reformats were obtained. One or more of the following individualized dose reduction techniques were utilized for this examinat ion: 1. Automated exposure control 2. Adjustment of/or kV according to patient size 3. Use of iterative reconstruction technique. FINDINGS: Thyroid gland and thoracic inlet: Normal. Heart and great vessels: Heart is normal in size. There are coronary artery and aortic valve calcific ations. There is a recurrent right subclavian artery. Thoracic aorta is normal in caliber with mild c alcified atherosclerosis. Mediastinum and richei: There are small mediastinal and hilar lymph nodes, nonspecific. Lungs and pleura: There is a new slightly spiculated perihilar nodule in the right upper lobe measuri ng 0.6 x 1.0 cm (image 36 and 37 series 4). There is a groundglass nodule in the medial left lower lo be measuring 1.0 x 0.8 cm (image 47, series 4). There is diffuse airway wall thickening. Mild bronchi ectasis in the lower lobes. Trace right pleural effusion. Chest wall and axillae: Unremarkable. Upper abdomen: There are few simple cyst in the liver measuring up to 2 cm. Bones: Unchanged mild superior endplate deformity of T3. No acute fracture. IMPRESSION: 1. No abnormality in the mid left lung to correspond with the questioned nodule on radiograph. 2. New slightly spiculated perihilar nodule in the right upper lobe measuring 1.6 x 1.0 cm. Malignan cy is possible. Recommend PET/CT or biopsy to further evaluate, or three-month follow-up CT of the ch est. 3. 1 cm groundglass nodule in the medial left lower lobe. Recommend attention on follow-up. Electronically signed by: Nabila Parsons MD (05/28/2021 9:06 AM) [id number]
--- NOTE | 2021-05-28 10:53 | PDOC1 ---
History and Physical Date of Service: DOS: DATE: 05/28/21 TIME: 10:49 Chief Complaint: Chief Complain: SOB History of Present Illness: HPI: Patient is a 76-year-old -[place] male presented to the emergency room overnight due to worsening shortness of breath. Patient COPD and recently started smoking again. Shortness of breath has been worsening for the past 3 to 4 days. No other associated symptoms. Reports he has a baseline cough but it is nonproductive. No home O2 but has been on previously. He is Covid vacc inated Chest x-ray showed concerning nodule. CT chest was then performed and revealed a new previously not seen spiculated mass concerning for malignancy. Patient also received steroids and antibiotics Past Medical/Surgical History: PMH/PSH: Past Medical History: Asthma, COPD, Hypertension, Renal Disease Past Surgical History: Appendectomy Additional Past Surgical Histo: Hip surgery Smoking Status: Former Smoker Alcohol Use: former heavy use Drug Use: None Allergies: Allergies: Coded Allergies: No Known Drug Allergies (Unverified , 05/28/21) Family History: Family History: HTN Current Medications: Current Medications Current Medications Methylprednisolone Sodium Succinate (SOLU-Medrol 125MG VIAL) 125 mg 1X ONCE IV Last administered on 05/28/21at 04:51; Start 05/28/21 at 04:45; Stop 05/28/21 at 04:46; Status DC Albuterol/ Ipratropium (Duoneb) 3 ml RTQID NEB Last administered on 05/28/21at 0 7:49; Start 05/28/21 at 08:00; Stop 05/28/21 at 08:20; Status DC Albuterol Sulfate (Ventolin Neb Soln) 2.5 mg PRN Q4HRS PRN NEB SHORTNESS OF BREATH; Start 05/28/21 at 06:00; Status UNV Ceftriaxone Sodium (Rocephin) 1 gm 1X ONCE IVP Last administered on 05/28/21at 06:42; Start 05/28/21 at 06:00; Stop 05/28/21 at 06:01; Status DC Azithromycin 500 mg/Sodium Chloride 250 ml @ 250 mls/hr 1X ONCE IV Last administered on 05/28/21at 06:39; Start 05/28/21 at 06:30; Stop 05/28/21 at 07:29; Status DC Sodium Chloride 1,000 ml @ 1,000 mls/hr 1X ONCE IV Last administered on 05/28/21at 06:25; Start 05/28/21 at 06:00; Stop 05/28/21 at 06:59; Status DC Albuterol Sulfate (Ventolin Hfa) 2 puff PRN Q4HRS PRN INH SOA; Start 05/28/21 at 06:00 Aspirin (Aspirin Chewable) 81 mg DAILY PO Last administered on 05/28/21at 08:56; Start 05/28/21 at 09:00 Lisinopril (Prinivil) 5 mg DAILY07 PO ; Start 05/28/21 at 08:00; Stop 05/28/21 at 08:24; Status DC Non-Formulary Medication (Fluticasone/ Salmeterol (Advair 250-50 Diskus)) 1 each BID IH ; Start 05/28/21 at 09:00; Status UNV Multivitamins (Thera M Plus) 1 tab DAILY PO Last administered on 05/28/21at 08:56; Start 05/28/21 at 09:00 Non-Formulary Medication (Tiotropium [place] (Spiriva)) 2 inh DAILY IH ; Start 05/28/21 at 09:00; Status UNV Prednisone (Prednisone) 40 mg DAILY PO Last administered on 05/28/21at 08:56; Start 05/28/21 at 09:00 Doxycycline Hyclate (Vibra-Tab) 100 mg BID PO Last administered on 05/28/21at 08:56; Start 05/28/21 at 09:00 Albuterol/ Ipratropium (Duoneb) 3 ml RTQID NEB ; Start 05/28/21 at 12:00 Budesonide (Pulmicort) 0.5 mg RTBID NEB ; Start 05/28/21 at 20:00 Iohexol (Omnipaque 300 Mg/ml) 60 ml 1X ONCE IV Last administered on 05/28/21at 08:29; Start 05/28/21 at 08:15; Stop 05/28/21 at 08:17; Status DC Info (CONTRAST GIVEN -- Rx MONITORING) 1 each PRN DAILY PRN MC SEE COMMENTS; Start 05/28/21 at 08:30; Stop 05/30/21 at 08:29 Hydralazine HCl (Apresoline) 50 mg BID PO Last administered on 05/28/21at 08:56; Start 05/28/21 at 09:00 Ceftriaxone Sodium (Rocephin) 1 gm Q24H IVP ; Start 05/29/21 at 08:00 Active Scripts Active Reported Duoneb 0.5-3(2.5) Mg/3 Ml (Albuterol/Ipratropium) 3 Ml Ampul.neb 3 Ml NEB QID Symbicort 160-4.5 Mcg Inhaler (Budesonide/Formoterol Fumarate) 10.2 Gm Hfa.aer.ad 2 Puff IH BID Hydralazine Hcl 50 Mg Tablet 1 Tab PO BID Aspirin 81 Mg Tab.chew 81 Mg PO DAILY Centrum Silver Tablet (Multivits-Min/Fa/Lycopene/Lut) 1 Each Tablet 1 Each PO DAILY07 ROS: Review of Systems Review of System Unless noted in HPI 14 point review systems is negative Physical Exam: Vital Signs: Vital Signs Date Time Temp Pulse Resp B/P (MAP) Pulse Ox O2 Delivery O2 Flow Rate FiO2 05/28/21 08:56 90 132/76 05/28/21 08:00 Nasal Cannula 4.0 05/28/21 07:49 98 05/28/21 07:30 98.5 18 98.5 Physcial Exam: GEN: No apparent distress. Alert and oriented HEENT: Normal cephalic, atraumatic, external auditory canals are patent EYES: Extraocular muscles are intact, pupil are equally round and reactive to light and accommodation MUSCULOSKELETAL: Well developed , well nourished, good range of motion ENDOCRINE: No thyromegaly was palpated LYMPHATICS: No cervical chain or axillary nodes were noted HEMATOPOIETIC: No bruising NECK: Supple, no JVD, no thyromegaly was noted LUNGS: Decreased air entry throughout HEART: RRR, S1, S2 present. Peripheral pulses intact, no obvious murmurs noted ABDOMEN: Soft, nontender. Positive bowel sounds, no organomegaly, normal bowel sounds EXTREMITIES: Without clubbing, cyanosis, or edema. Pedal pulses intact. Negative Homans sign NEUROLOGIC: Normal speech and tone. A&O x 3, moves all extremities, no obvious focal deficits PSYCHIATRIC: Normal affect, normal mood. Stable SKIN: No ulcerations or rashes, good skin turgor, no jaundice VASCULAR: Good capillary refill, neurovascular bundle appears to be intact Labs: Labs: Laboratory Tests Test 05/28/21 04:09 05/28/21 04:28 05/28/21 05:40 White Blood Count 7.6 x10^3/uL (4.0-11.0) Red Blood Count 3.95 x10^6/uL (4.30-5.70) Hemoglobin 14.2 g/dL (13.0-17.5) Hematocrit 42.8 % (39.0-53.0) Mean Corpuscular Volume 109 fL (79-100) Mean Corpuscular Hemoglobin 36 pg (25-35) Mean Corpuscular Hemoglobin Concent 33 g/dL (31-37) Red Cell Distribution Width 15.3 % (11.5-14.5) Platelet Count 150 x10^3/uL (140-400) Neutrophils (%) (Auto) 72 % (31-73) Lymphocytes (%) (Auto) 13 % (24-48) Monocytes (%) (Auto) 14 % (0-9) Eosinophils (%) (Auto) 1 % (0-3) Basophils (%) (Auto) 1 % (0-3) Neutrophils # (Auto) 5.4 x10^3/uL (1.8-7.7) Lymphocytes # (Auto) 1.0 x10^3/uL (1.0-4.8) Monocytes # (Auto) 1.0 x10^3/uL (0.0-1.1) Eosinophils # (Auto) 0.0 x10^3/uL (0.0-0.7) Basophils # (Auto) 0.1 x10^3/uL (0.0-0.2) Sodium Level 142 mmol/L (136-145) Potassium Level 4.2 mmol/L (3.5-5.1) Chloride Level 99 mmol/L (98-107) Carbon Dioxide Level 31 mmol/L (21-32) Anion Gap 12 (6-14) Blood Urea Nitrogen 27 mg/dL (8-26) Creatinine 2.3 mg/dL (0.7-1.3) Estimated GFR (Cockcroft-Gault) 33.6 BUN/Creatinine Ratio 12 (6-20) Glucose Level 98 mg/dL (70-99) Calcium Level 9.4 mg/dL (8.5-10.1) Total Bilirubin 0.5 mg/dL (0.2-1.0) Aspartate Amino Transf (AST/SGOT) 24 U/L (15-37) Alanine Aminotransferase (ALT/SGPT) 24 U/L (16-63) Alkaline Phosphatase 75 U/L (46-116) Troponin I High Sensitivity 14 ng/L (4-75) Total Protein 7.5 g/dL (6.4-8.2) Albumin 3.8 g/dL (3.4-5.0) Albumin/Globulin Ratio 1.0 (1.0-1.7) Influenza Type A Antigen Negative (NEGATIVE) Influenza Type B Antigen Negative (NEGATIVE) SARS-CoV-2 Antigen (Rapid) Negative (NEGATIVE) O2 Saturation 96 % (92-99) Arterial Blood pH 7.43 (7.35-7.45) Arterial Blood pCO2 at Patient Temp 42 mmHg (35-46) Arterial Blood pO2 at Patient Temp 97 mmHg (65-108) Arterial Blood HCO3 27 mmol/L (21-28) Arterial Blood Base Excess 2 mmol/L (-3-3) Oxyhemoglobin 89.1 % Methemoglobin 0.4 % (0.0-1.9) Carbon Monoxide, Quantitative 7.2 % (0.0-1.9) FiO2 2lnc Laboratory Tests Test 05/28/21 04:09 05/28/21 04:28 05/28/21 05:40 White Blood Count 7.6 x10^3/uL (4.0-11.0) Red Blood Count 3.95 x10^6/uL (4.30-5.70) Hemoglobin 14.2 g/dL (13.0-17.5) Hematocrit 42.8 % (39.0-53.0) Mean Corpuscular Volume 109 fL (79-100) Mean Corpuscular Hemoglobin 36 pg (25-35) Mean Corpuscular Hemoglobin Concent 33 g/dL (31-37) Red Cell Distribution Width 15.3 % (11.5-14.5) Platelet Count 150 x10^3/uL (140-400) Neutrophils (%) (Auto) 72 % (31-73) Lymphocytes (%) (Auto) 13 % (24-48) Monocytes (%) (Auto) 14 % (0-9) Eosinophils (%) (Auto) 1 % (0-3) Basophils (%) (Auto) 1 % (0-3) Neutrophils # (Auto) 5.4 x10^3/uL (1.8-7.7) Lymphocytes # (Auto) 1.0 x10^3/uL (1.0-4.8) Monocytes # (Auto) 1.0 x10^3/uL (0.0-1.1) Eosinophils # (Auto) 0.0 x10^3/uL (0.0-0.7) Basophils # (Auto) 0.1 x10^3/uL (0.0-0.2) Sodium Level 142 mmol/L (136-145) Potassium Level 4.2 mmol/L (3.5-5.1) Chloride Level 99 mmol/L (98-107) Carbon Dioxide Level 31 mmol/L (21-32) Anion Gap 12 (6-14) Blood Urea Nitrogen 27 mg/dL (8-26) Creatinine 2.3 mg/dL (0.7-1.3) Estimated GFR (Cockcroft-Gault) 33.6 BUN/Creatinine Ratio 12 (6-20) Glucose Level 98 mg/dL (70-99) Calcium Level 9.4 mg/dL (8.5-10.1) Total Bilirubin 0.5 mg/dL (0.2-1.0) Aspartate Amino Transf (AST/SGOT) 24 U/L (15-37) Alanine Aminotransferase (ALT/SGPT) 24 U/L (16-63) Alkaline Phosphatase 75 U/L (46-116) Troponin I High Sensitivity 14 ng/L (4-75) Total Protein 7.5 g/dL (6.4-8.2) Albumin 3.8 g/dL (3.4-5.0) Albumin/Globulin Ratio 1.0 (1.0-1.7) Influenza Type A Antigen Negative (NEGATIVE) Influenza Type B Antigen Negative (NEGATIVE) SARS-CoV-2 Antigen (Rapid) Negative (NEGATIVE) O2 Saturation 96 % (92-99) Arterial Blood pH 7.43 (7.35-7.45) Arterial Blood pCO2 at Patient Temp 42 mmHg (35-46) Arterial Blood pO2 at Patient Temp 97 mmHg (65-108) Arterial Blood HCO3 27 mmol/L (21-28) Arterial Blood Base Excess 2 mmol/L (-3-3) Oxyhemoglobin 89.1 % Methemoglobin 0.4 % (0.0-1.9) Carbon Monoxide, Quantitative 7.2 % (0.0-1.9) FiO2 2lnc Assessment/Plan Assessment/Plan Shortness of breath secondary to COPD exacerbation versus pneumonia versus new malignancy? History hypertension kidney disease -Presenting worsening shortness of breath the past 3 days. Has history of COPD is actively smoking again -CT chest performed showed spiculated mass. Pulmonary consultation. Patient does report he is supposed to follow-up pulmonary outpatient but has been unable to -Empiric steroids and antibiotics to cover for COPD exacerbation and possible pneumonia -Other home meds resumed as indicated -DVT prophylaxis -Discussed with bedside RN. -Wean O2 as tolerated. Justifications for Admission Other Justification NEERU GARCIA MD May 28, 2021 10:53
[2021-05-28 11:16] VITALS: BP 157/84
--- NOTE | 2021-05-28 12:26 | CONS ---
DATE OF CONSULTATION: 05/28/2021 ATTENDING PHYSICIAN: Aida Rendon M.D. REASON FOR CONSULTATION: COPD exacerbation and lung nodule. HISTORY OF PRESENT ILLNESS: The patient is a 76-year-old male who smoked for about 45 years. He has not completely quit cigarettes. He came into the Emergency Room with complaint of shortness of breath. He also had a cough with steiner sputum production. No chest pain, no headaches. No nausea, vomiting, diarrhea. He is not on home oxygen. He is vaccinated with COVID. He was initially requiring oxygen up to 4 liters. He is now down to 2 liters. The patient had a CT chest performed on 05/28 and comparisons were made to . The patient has a new slightly spiculated nodule in the right upper lobe measuring 0.6 x 1 cm. There is a ground-glass nodule medially in the left lower lobe, which is about 1 cm in size. There is some mild bronchiectasis in the lower lobes. A consultation requested for further evaluation and management. PAST MEDICAL HISTORY: Suspected for severe COPD. History of hypertension and CKD. PAST SURGICAL HISTORY: Appendectomy and hip surgery. SOCIAL HISTORY: Smoker for 45 years, still smokes. One pack would last 3 days. History of heavy alcohol use. ALLERGIES: None. MEDICATIONS: Reviewed as listed in the MRAD including antibiotics, Rocephin. He is on prednisone 40 mg and DuoNeb. REVIEW OF SYSTEMS: A 12-point review of system obtained. Pertinent positives discussed in my present illness, otherwise, noncontributory. All systems that were negative were reviewed as well. FAMILY HISTORY: Noncontributory to lungs. PHYSICAL EXAMINATION: VITAL SIGNS: Reviewed. Pulse ox 98% on 2 liters. Afebrile. NECK: Supple. LUNGS: With diminished breath sounds bilaterally. CARDIOVASCULAR: With a regular rate. ABDOMEN: Soft, nontender. EXTREMITIES: With no pitting edema. LABORATORY DATA: Reviewed. Influenza negative. COVID negative. BUN 27, creatinine 2.3. ABGs were reviewed. PO2 was 97 and a pCO2 of 42. IMPRESSION: 1. Dyspnea along with acute hypoxic respiratory failure secondary to acute exacerbation of chronic obstructive pulmonary disease and acute bronchitis. No definite consolidation seen. 2. Abnormal CT chest with a tiny nodule in the right upper lobe measuring 0.6 x 1 cm. There was a typo on the actual impression on the report where the size was mentioned as 1.6 cm. There is also ground-glass nodule in the medial left lower lobe, which is 1 cm x 0.8 cm in size. These nodules, needs to be closely followed up due to his long history of tobaccoism. No intervention needed at present. 3. Chronic kidney disease. RECOMMENDATIONS: 1. Continue present bronchodilators. 2. Finish the course of prednisone. 3. Empiric antibiotic. 4. PFTs as an outpatient. 5. DVT prophylaxis with subcutaneous heparin. 6. The patient will need a followup CT chest in 4-6 months. 7. Discussed with RN. The patient will need a 6-minute walk test in next [address]A [address]: Lolis TID: [id number]
[2021-05-28] MEDS: IPRATRPIUM/ALBUTEROL 0.5/2.5MG 3 ML NEBU. NEB SCH ×3 (12:49→20:44)
[2021-05-28] MEDS: HEPARIN for SUB-Q USE 5,000 UNIT/ML VIAL. SQ SCH ×2 (14:22→22:07)
[2021-05-28 15:15] VITALS: BP 143/66
[2021-05-28 19:00] VITALS: BP 131/75
[2021-05-28] MEDS: LACTOBACILLUS RHAMNOSUS GG 1 CAPSULE. PO SCH (20:10)
[2021-05-28] MEDS: BUDESONIDE 0.5 MG/2 ML NEBU. NEB SCH (20:45)
[2021-05-28 22:16] VITALS: BP 135/71
[2021-05-29 02:36] VITALS: BP 135/63
[2021-05-29] MEDS: HEPARIN for SUB-Q USE 5,000 UNIT/ML VIAL. SQ SCH ×2 (05:23→14:00)
[2021-05-29 07:30] VITALS: BP 148/69
[2021-05-29] MEDS ORDERED: cefTRIAXone IV Push 1 GM VIAL. IVP SCH (08:00)
[2021-05-29] MEDS: BUDESONIDE 0.5 MG/2 ML NEBU. NEB SCH (08:45)
[2021-05-29] MEDS: IPRATRPIUM/ALBUTEROL 0.5/2.5MG 3 ML NEBU. NEB SCH ×2 (08:45→12:04)
[2021-05-29] MEDS: LACTOBACILLUS RHAMNOSUS GG 1 CAPSULE. PO SCH (08:49)
[2021-05-29] MEDS: ASPIRIN CHEWABLE 81 MG TABLET. PO SCH (08:49)
[2021-05-29] MEDS: predniSONE 20 MG TABLET PO SCH (08:49)
[2021-05-29] MEDS: DOXYCYCLINE HYCLATE 100 MG TABLET PO SCH (08:49)
[2021-05-29] MEDS: MULTIVITAMIN with MINERAL TABLET. PO SCH (08:49)
--- NOTE | 2021-05-29 10:10 | PDOC ---
PULMONARY PROGRESS NOTES DATE: 05/29/21 TIME: 10:08 Subjective Feels better. Currently on room air. Vitals Vital Signs Date Time Temp Pulse Resp B/P (MAP) Pulse Ox O2 Delivery O2 Flow Rate FiO2 05/29/21 08:49 81 148/69 05/29/21 08:48 97 Room Air 05/29/21 07:30 97.8 16 97.8 05/29/21 02:36 1.0 General: Alert, No acute distress, Mild Distress Lungs: Clear Cardiovascular: S1 Abdomen: Soft Extremities: No Edema Labs Laboratory Tests Test 05/28/21 04:09 05/28/21 04:28 05/28/21 05:40 White Blood Count 7.6 x10^3/uL (4.0-11.0) Red Blood Count 3.95 x10^6/uL (4.30-5.70) Hemoglobin 14.2 g/dL (13.0-17.5) Hematocrit 42.8 % (39.0-53.0) Mean Corpuscular Volume 109 fL (79-100) Mean Corpuscular Hemoglobin 36 pg (25-35) Mean Corpuscular Hemoglobin Concent 33 g/dL (31-37) Red Cell Distribution Width 15.3 % (11.5-14.5) Platelet Count 150 x10^3/uL (140-400) Neutrophils (%) (Auto) 72 % (31-73) Lymphocytes (%) (Auto) 13 % (24-48) Monocytes (%) (Auto) 14 % (0-9) Eosinophils (%) (Auto) 1 % (0-3) Basophils (%) (Auto) 1 % (0-3) Neutrophils # (Auto) 5.4 x10^3/uL (1.8-7.7) Lymphocytes # (Auto) 1.0 x10^3/uL (1.0-4.8) Monocytes # (Auto) 1.0 x10^3/uL (0.0-1.1) Eosinophils # (Auto) 0.0 x10^3/uL (0.0-0.7) Basophils # (Auto) 0.1 x10^3/uL (0.0-0.2) Sodium Level 142 mmol/L (136-145) Potassium Level 4.2 mmol/L (3.5-5.1) Chloride Level 99 mmol/L (98-107) Carbon Dioxide Level 31 mmol/L (21-32) Anion Gap 12 (6-14) Blood Urea Nitrogen 27 mg/dL (8-26) Creatinine 2.3 mg/dL (0.7-1.3) Estimated GFR (Cockcroft-Gault) 33.6 BUN/Creatinine Ratio 12 (6-20) Glucose Level 98 mg/dL (70-99) Calcium Level 9.4 mg/dL (8.5-10.1) Total Bilirubin 0.5 mg/dL (0.2-1.0) Aspartate Amino Transf (AST/SGOT) 24 U/L (15-37) Alanine Aminotransferase (ALT/SGPT) 24 U/L (16-63) Alkaline Phosphatase 75 U/L (46-116) Troponin I High Sensitivity 14 ng/L (4-75) Total Protein 7.5 g/dL (6.4-8.2) Albumin 3.8 g/dL (3.4-5.0) Albumin/Globulin Ratio 1.0 (1.0-1.7) Influenza Type A Antigen Negative (NEGATIVE) Influenza Type B Antigen Negative (NEGATIVE) SARS-CoV-2 Antigen (Rapid) Negative (NEGATIVE) O2 Saturation 96 % (92-99) Arterial Blood pH 7.43 (7.35-7.45) Arterial Blood pCO2 at Patient Temp 42 mmHg (35-46) Arterial Blood pO2 at Patient Temp 97 mmHg (65-108) Arterial Blood HCO3 27 mmol/L (21-28) Arterial Blood Base Excess 2 mmol/L (-3-3) Oxyhemoglobin 89.1 % Methemoglobin 0.4 % (0.0-1.9) Carbon Monoxide, Quantitative 7.2 % (0.0-1.9) FiO2 2lnc Medications Active Scripts Medications Dose Route/Sig Max Daily Dose Days Date Category Duoneb 0.5-3(2.5) Mg/3 Ml (Albuterol/Ipratropium) 3 Ml Ampul.neb 3 Ml NEB QID 05/28/21 Reported Symbicort 160-4.5 Mcg Inhaler (Budesonide/Formoterol Fumarate) 10.2 Gm Hfa.aer.ad 2 Puff IH BID 05/28/21 Reported Hydralazine Hcl 50 Mg Tablet 1 Tab PO BID 05/28/21 Reported Aspirin 81 Mg Tab.chew 81 Mg PO DAILY 04/05/13 Reported Centrum Silver Tablet (Multivits-Min/Fa/Lycopene/Lut) 1 Each Tablet 1 Each PO DAILY07 04/05/13 Reported Impression . 1. Dyspnea along with acute hypoxic respiratory failure secondary to acute exacerbation of chronic obstructive pulmonary disease and acute bronchitis. No definite consolidation seen. 2. Abnormal CT chest with right upper lobe perihilar nodule. Discussed with the radiologist and confirmed the exact dimensions. It is 1.6 cm in size. There is also ground-glass nodule in the medial left lower lobe, which is 1 cm x 0.8 cm in size. These nodules, needs to be closely followed up due to his long history of tobaccoism. No intervention needed at present. 3. Chronic kidney disease. Plan . RECOMMENDATIONS: 1. Continue present bronchodilators. 2. Finish the course of prednisone. 3. Empiric antibiotic. 4. PFTs as an outpatient. 5. DVT prophylaxis with subcutaneous heparin. 6. The patient will need a followup CT chest in 4 to 6 weeks with special attention to the right upper lobe perihilar 1.6 cm nodule. If no change, may need a PET scan. 7. Discussed with RN. 8. Okay to discharge home today after 6-minute walk test. 9. We will follow up in the office in 6 to 8 weeks after the CAT scan. BRUNA DUTTON MD May 29, 2021 10:10
[2021-05-29 11:00] VITALS: BP 128/66
[2021-05-29] MEDS ORDERED: PRED20TA PO (12:25)
--- NOTE | 2021-05-29 12:29 | PDOC3 ---
[facility]-Discharge Summary Date of Admission: Date of Admission: May 28, 2021 Date of Discharge: Date of Discharge: May 29, 2021 Admission Diagnosis: Problems: (1) COPD with acute exacerbation Consults: Consults: Pulm Hospital Course: Hospital Course: Patient is a 76-year-old -Citizen Of [place] male presented to the emergency room overnight due to worsening shortness of breath. Patient COPD and recently started smoking again. Shortness of breath has been worsening for the past 3 to 4 days. No other associated symptoms. Reports he has a baseline cough but it is nonproductive. No home O2 but has been on previously. He is Covid vaccinated Chest x-ray showed concerning nodule. CT chest was then performed and revealed a new previously not seen spiculated mass concerning for malignancy. Patient also received steroids and antibiotic 05/29 Patient evaluate examined at bedside. Resting in bed doing well not on actually any oxygen. Still needs 6-minute walk. Discussed case with pulmonary he can follow-up in their clinic for evaluation of the mass in a few weeks. Finish prednisone course. Discharge home today greater than 30 minutes spent on d/c. 19 min acp Disposition: Disposition/Orders: D/C to Home Activity: Activity: Resume previous activity Diet: Diet: Regular Medications: Home Meds Active Scripts Prednisone (PREDNISONE) 20 Mg Tablet, 40 MG PO DAILY for copd for 4 Days, #8 TAB Prov:NEERU GARCIA MD 05/29/21 Reported Medications Ipratropium/Albuterol Sulfate (DUONEB 0.5-3(2.5) MG/3 ML) 3 Ml Ampul.neb, 3 ML NEB QID for COPD, EACH 05/28/21 Budesonide/Formoterol Fumarate (SYMBICORT 160-4.5 MCG INHALER) 10.2 Gm Hfa.aer.ad, 2 PUFF IH BID for COPD, #10.6 GM 3 Refills 05/28/21 Hydralazine Hcl (HYDRALAZINE HCL) 50 Mg Tablet, 1 TAB PO BID for HTN, #180 TAB 3 Refills 05/28/21 Aspirin (ASPIRIN) 81 Mg Tab.chew, 81 MG PO DAILY, TAB.CHEW 04/05/13 Multivits-Min/Fa/Lycopene/Lut (CENTRUM SILVER TABLET) 1 Each Tablet, 1 EACH PO DAILY07 04/05/13 Discontinued Reported Medications [combivent] No Conflict Check 04/10/17 [symbicort] No Conflict Check 04/10/17 Tiotropium [place] (SPIRIVA) 18 Mcg Cap.w.dev, 2 INH IH DAILY, #1 INH 0 Refills 04/10/17 Lisinopril (LISINOPRIL) 5 Mg Tablet, 5 MG PO DAILY07 04/05/13 Scheduled Aspirin (Aspirin), 81 MG PO DAILY, (Reported) Budesonide/Formoterol Fumarate (Symbicort 160-4.5 Mcg Inhaler), 2 PUFF IH BID, (Reported) Hydralazine Hcl (Hydralazine Hcl), 1 TAB PO BID, (Reported) Ipratropium/Albuterol Sulfate (Duoneb 0.5-3(2.5) Mg/3 Ml), 3 ML NEB QID, (Reported) Multivits-Min/Fa/Lycopene/Lut (Centrum Silver Tablet), 1 EACH PO DAILY07, (Reported) Prednisone (Prednisone), 40 MG PO DAILY Discontinued Medications Lisinopril (Lisinopril), 5 MG PO DAILY07, (Reported) Tiotropium [place] (Spiriva), 2 INH IH DAILY, (Reported) [combivent], (Reported) [symbicort], (Reported) Justicifation of Admission Dx: Justifications for Admission: Justification of Admission Dx: N/A NEERU GARCIA MD May 29, 2021 12:29
--- NOTE | 2021-05-29 14:26 | NUR ---
SS following for discharge planning. SS reviewed pt chart. Pt is from home with spouse and is currently on room air. COVID19 negative. Discharge order on the chart for home with self care.
[2021-05-29 15:00] VITALS: BP 139/74
--- NOTE | 2021-05-29 15:10 | NUR ---
Discharge Note: Patient was discharged home with self care. Patients IV was discontinued without any complications per RN. Patient completed 6 minute walk and did not need home oxygen. Patient was given discharge summary/instructions, follow-ups and educational material. Patients new prescriptions were sent to patients preferred pharmacy. Patient was taken to the main entrance via wheelchair with all personal belongings accompanied by this RN, where patients family member was waiting for him to take him home.
== END 2021-05-29 15:00 | disposition home or self-care (01) ==
LOC: ER 03:57 → 2 NORTH 05:16 → INTOOBSV 05:16
PROVIDERS: ADMIT Internal Medicine; ATTEND Internal Medicine
DX: J44.1 Chronic obstructive pulmonary disease with (acute) exacerbation (principal); Z20.822 Contact with and (suspected) exposure to COVID-19; I12.9 Hypertensive chronic kidney disease with stage 1 through stage 4 chronic kidney disease, or unspecified chronic kidney disease; N18.9 Chronic kidney disease, unspecified; J20.9 Acute bronchitis, unspecified; Z90.49 Acquired absence of other specified parts of digestive tract; Z87.891 Personal history of nicotine dependence; Z79.899 Other long term (current) drug therapy; Z98.890 Other specified postprocedural states; Z79.82 Long term (current) use of aspirin
CPT/HCPCS: 36415; 71045; 71260; 80053; 82805; 84484; 85025; 87428; 93005; 94618; 94640; 96365; 96372; 96375; 96376; G0378; J0456; J0696; J1644; J2930; J7030; J7050; J7512; J7626; Q9967; 94760; G0379

== ENCOUNTER → 2021-07-30 | Outpatient (CLI) | payer BC ==
[~2021-07-30] MED LIST changes: +BUDE10.2 IH; +HYDR-2869 PO; +IPRA3AMP29 NEB; +PRED20TA PO
--- NOTE | 2021-07-30 14:29 | RAD ---
EXAM: Chest CT without intravenous contrast. HISTORY: Lung mass. TECHNIQUE: Computed tomographic images of the chest were obtained without contrast. Multiplanar refor matting was performed. *One or more of the following individualized dose reduction techniques were utilized for this examina tion: 1. Automated exposure control. 2. Adjustment of the mA and/or kV according to patient size. 3. Use of iterative reconstruction technique. COMPARISON: 05/28/2021 and 11/29/2015. FINDINGS: There has been slight interval increase in the size of a 2.1 cm solid right hilar nodule an d adjacent spiculated masslike opacity measuring 1.8 cm. The interval exchange architect a 2 month interval is concerning for a neoplastic etiology. There is no infiltrate, pleural effusion or pneumothorax. Th ere is emphysema. There is a stable 1.0 cm groundglass opacity within the posterior right lower lobe and there is a sta ble 1.5 cm focal groundglass opacity within the left lower lobe, likely postinfectious or postinflamm atory in etiology. There are few tiny benign pleural based nodular opacities, the largest of which me asures 3 mm within the lateral left lower lobe. There is a stable 4 mm nodule along the superior medi al left pleural fissure, likely due to a fissural lymph node. There is medial right middle lobe atele ctasis or scarring. The heart is normal in size. There is coronary artery calcification. There is calcification of the ao rtic valve. No pathologically enlarged mediastinal or hilar lymph node is seen. There is an aberrant right subclavian artery, a normal variant. There are hypodense lesions within the liver, the attenuat ion which favors cysts. There is degenerative change involving the spine. There is a mild chronic sup erior endplate depression at T3. IMPRESSION: 1. Slight interval increased size of a 2.1 cm solid right hilar nodule and adjacent 1.8 cm spiculated nodular opacity, allowing for differences in slice position and volume averaging. The exchange architect a short interval is concerning for neoplasm. 2. Stable groundglass opacities and tiny pleural-based nodules within both lungs and suspected 4 mm l eft fissural lymph node. These are likely benign. Attention at the time of follow-up is recommended. 3. Emphysema. 4. Multiple hypodense lesions within the liver, the attenuation which favors cysts. These are further characterized on an MRI performed 04/21/2015. Electronically signed by: Maricruz Sutton MD (07/30/2021 2:26 PM) [id number]
== END ==
LOC: CT 12:47
PROVIDERS: ATTEND Internal Medicine Critical Care Medicine
DX: R91.8 Other nonspecific abnormal finding of lung field (principal); R91.1 Solitary pulmonary nodule; I25.10 Atherosclerotic heart disease of native coronary artery without angina pectoris; I35.1 Nonrheumatic aortic (valve) insufficiency; J43.9 Emphysema, unspecified; K76.89 Other specified diseases of liver; M47.819 Spondylosis without myelopathy or radiculopathy, site unspecified
CPT/HCPCS: 71250

== ENCOUNTER → 2021-08-08 | Outpatient (CLI) | payer BC ==
--- NOTE | 2021-08-08 14:51 | RAD ---
EXAM: PET/CT SKULL BASE THROUGH MID THIGH. HISTORY: Lung mass. TECHNIQUE: CT of the skull base through the mid thighs was performed for the purposes of attenuation correction. 14.0 mCi F-18 fluorodeoxyglucose were administered intravenously. Blood glucose level at the time of administration was 105 mg/dL. After 55 minutes uptake, positron emission tomography of th e skull base through the mid thighs was performed. The PET and CT data were fused and interpreted in combination on a dedicated workstation. Reported standard uptake values (SUV) are the maximum SUV wit hin a lesional volumetric region of interest. SUV normalization is via body mass. COMPARISON: CT chest 11/29/2015. FINDINGS: Mediastinal blood pool max SUV reference value: 2.4. Background liver max SUV reference value: 2.6. Head and neck: Normal mucosal activity in the head and neck. Chest: Diffuse emphysematous change. There is a subsolid peribronchial spiculated nodule at the right upper lobe adjacent to the hilum measuring approximately 1.8 x 1.6 cm diameter (axial 100), 1.2 SUV max. Left lower lobe groundglass nodule measuring approximately 2 cm diameter (axial 120) measures 0. 7 SUV max. Calcified aortic arch. Aberrant retroesophageal right subclavian artery. There is debris dependent in the trachea. Abdomen and pelvis: Normal renal excretory activity and bowel activity. Benign hypoattenuating renal cysts. Layering density within the gallbladder may represent sludge. Aortoiliac atherosclerotic calci fication. Markedly enlarged prostate. Skeletal and superficial soft tissues: Degenerative changes of the spine and shoulders. IMPRESSION: 1. Mild increased activity associated with some solid peribronchial spiculated nodule of the right u pper lobe adjacent to the hilum, 1.2 SUV max. This is increased in size from 2016 concerning for slow growing malignancy. Consider bronchoscopy with tissue sampling. 2. Additional subsolid left lower lobe pulmonary nodule measuring 2 cm with minimally increased acti vity above background lung. Recommend correlation with current CT examination. 3. No hypermetabolic adenopathy. 4. Enlarged prostate. Correlate with exam. Electronically signed by: Andrew Beltran MD (08/08/2021 2:49 PM) [id number]
== END ==
LOC: PETSC 06:58
PROVIDERS: ATTEND Internal Medicine Critical Care Medicine
DX: R91.8 Other nonspecific abnormal finding of lung field (principal); N28.1 Cyst of kidney, acquired; I70.0 Atherosclerosis of aorta; N40.0 Benign prostatic hyperplasia without lower urinary tract symptoms; J43.9 Emphysema, unspecified; M19.011 Primary osteoarthritis, right shoulder; M47.819 Spondylosis without myelopathy or radiculopathy, site unspecified; M19.012 Primary osteoarthritis, left shoulder
CPT/HCPCS: 78815; A9552